=== PATIENT | male | born 1990 | race Two or more races ===

== ENCOUNTER 2019-11-15 10:11 | Emergency (ER) | payer OTHER ==
[~2019-11-15] VITALS: Ht 165.1 cm; Wt 74.8 kg
[2019-11-15 10:34] VITALS: Ht 165.1 cm; Wt 74.8 kg
[2019-11-15 12:35] VITALS: BP 130/80
== END 2019-11-15 12:35 | disposition home or self-care (01) ==
LOC: ED 10:11
DX: J40 Bronchitis, not specified as acute or chronic (principal)
CPT/HCPCS: Q0092